=== PATIENT | male | born 1990 | race Caucasian/White ===

== ENCOUNTER 2016-11-13 06:37 | Emergency (ER) | payer OTHER ==
[~2016-11-13] VITALS: Ht 175.3 cm; Wt 75.8 kg
[~2016-11-13 06:37] MED LIST: ADVIL200 M1 PO; ALPRAZOLAM1 M2 PO; CLONIDINE HCL0.2 M1 PO; EXCEDRIN MIGRA1 EAC1 PO; IMITREX50 M1 PO; PROPRANOLOL HCL40 M1 PO; ZOFRAN ODT4 M1 SL
--- NOTE | 2016-11-13 07:08 | ED PSYCHIATRIC COMPLAINT ---
History of Present Illness General Chief Complaint: ETOH/Drug Related Complaint Stated Complaint: TRES HEROIN OD (4BAGS) Source: patient, EMS Exam Limitations: no limitations Vital Signs & Intake/Output Vital Signs & Intake/Output Vital Signs Date Time Temp Pulse Resp B/P Pulse O2 O2 Flow FiO2 Ox Delivery Rate 11/13 0653 97 Room Air 11/13 0641 100.2 110 18 148/93 98 Room Air Allergies Coded Allergies: mushroom (Intermediate, HIVES 03/06/16) Reconcile Medications Alprazolam 1 MG TABLET 1 TAB PO TID PRN ANXIETY (Reported) Aspirin/Acetaminophen/Caffeine (Excedrin Migraine Caplet) 250 MG-250 MG-65 MG TABLET 2-3 TAB PO DAILY PRN HEADACHES (Reported) Ibuprofen (Advil) 200 MG CAPSULE 8 TAB PO PRN PAIN (Reported) Triage Note: TRIAGE: PATIENT TO ER FROM HOME REPORTING SNORTED 4-6 BAGS HEROIN AT APPROX 4AM, FOUND UNRESPONSIVE AND AGONAL RESPIRATIONS BY FATHER JUST BIAZZI NITRATOR OPERATOR. BIBA, NARCAN ADMINISTERED BY PD ON ARRIVAL, PREHOSP IV EST #18 LEFT AC. PATIENT ARRIVES ALERT AND ORIENTED, DROWSY. WANDED AND CHANGED INTO SCRUBS. 1 BELONGINGS BAG LOCKED IN CLOSET, 1 VALUABLES BAG TO ER SAFE. PATIENT VSS, PLACED ON HEALTH AND SAFETY TECH, HR 110, SINUS TACH. Triage Nurses Notes Reviewed? yes Onset: Abrupt Duration: 4 AM Timing: single episode today Severity: severe Associated Symptoms: UNINTENTIONAL OVERDOSE HPI: 26 year old male TRES from home for chief complaint of snorting 5-6 bags appear when at 4 AM today. He was found unresponsive at home by his father given Narcan in the field with good response. Since arrival to the emergency department. He is been awake however slightly drowsy. Denies any suicidal or homicidal ideation. He states this is first relapse since rehabilitation one month ago at [facility]. Patient reports history of insomnia and states that he relapsed secondary to that. No anxiety or hallucinations or delusions. Denies any history of intravenous drug abuse. He states he took 1 tab of Lyrica as well. Patient reports history of emotional problems but states that he does not want to speak to a crisis counselor at this time. He states he just wants to follow up outpatient with [facility]. Past History Travel History Traveled to [place] past 21 day No Medical History Any Pertinent Medical History? see below for history Neurological: migraine EENT: NONE Cardiovascular: NONE Respiratory: NONE Gastrointestinal: STOMACH ULCERS Hepatic: NONE Renal: NONE Musculoskeletal: NONE Psychiatric: anxiety, depression, PANIC ATTACKS PTSD Endocrine: NONE Blood Disorders: NONE Cancer(s): NONE PARKING LOT MANAGER/Reproductive: NONE Surgical History Surgical History: non-contributory Psychosocial History Who do you live with Family What is your primary language Kiswahili Tobacco Use: Current Daily Use Daily Tobacco Use Amount/Type: => 5 Cigarettes daily Illicit Drug Use: heroin Family History Hx Contributory? No Review of Systems Review of Systems Constitutional: Denies: chills, fever. EENTM: Reports: no symptoms. Respiratory: Denies: cough, short of breath. Cardiovascular: Denies: chest pain. GI: Denies: abdominal pain. Genitourinary: Reports: no symptoms. Musculoskeletal: Reports: no symptoms. Skin: Reports: no symptoms. Neurological/Psychological: Reports: depressed, emotional problems. Denies: anxiety. Hematologic/Endocrine: Denies: bruising, bleeding. Immunologic/Allergic: Reports: no symptoms. All Other Systems: Reviewed and Negative Physical Exam Physical Exam General Appearance: well developed/nourished, awake, mild distress, DROWSY Head: atraumatic Eyes: Bilateral: PERRL, EOMI. Ears, Nose, Throat: normal pharynx, normal ENT inspection, hearing grossly normal Neck: normal inspection, supple Respiratory: normal breath sounds Cardiovascular: regular rate/rhythm Gastrointestinal: soft, non-tender Extremities: normal range of motion Neurological/Psychiatric: awake, SLIGHTLY DROWSY Appearance/Memory/Insight: denies illness, disheveled Behavoir/Eye Contact/Speech: cooperative, decreased rate of speech Thoughts/Hallucinations: no apparent hallucination Skin: intact, normal color, warm/dry SAD PERSONS Done? patient not suicidal Progress Differential Diagnosis: HEROIN OVERDOSE, POLYSUBSTANCE ABUSE Plan of Care: Current Medications Sig/Sophia Start time Last Medication Dose Stop Time Status Admin Sodium Chloride 1,000 ML BOLUS ONE 11/13 714 UNVr (Normal Saline 0.9%) 11/13 81311/13/2016 7:57:03 AM Patient ambulatory in the ED on the phone with his mother. No signs of respiratory distress. Patient states he does not want to crisis today. He he has a follow-up appointment with [facility]. (GRACE FISHMAN,JOSIANE) Departure Departure Time of Disposition: 933 Disposition: HOME OR SELF CARE Condition: Stable Clinical Impression Primary Impression: Heroin overdose Referrals: JOHN CHEATHAM MD (PCP/Family) Additional Instructions: Follow up with care and with a list of outpatient detox places. Departure Forms: Customer Survey General Discharge Information
[2016-11-13 09:11] VITALS: BP 126/73
== END 2016-11-13 09:35 ==
LOC: ERH 06:37
DX: T40.1X1A Poisoning by heroin, accidental (unintentional), initial encounter (principal)

== ENCOUNTER 2016-12-15 03:56 | Emergency (ER) | payer OTHER ==
[~2016-12-15] VITALS: Ht 177.8 cm; Wt 72.6 kg
--- NOTE | 2016-12-15 04:19 | ED AMS/SEIZURE/WEAK/DIZZY ---
History of Present Illness General Chief Complaint: ETOH/Drug Related Complaint Stated Complaint: BIBA, OVERDOSE Source: patient, EMS Exam Limitations: no limitations Vital Signs & Intake/Output Vital Signs & Intake/Output Vital Signs Date Time Temp Pulse Resp B/P B/P Pulse O2 O2 Flow FiO2 Mean Ox Delivery Rate 12/15 08 96.2 77 16 109/54 97 Room Air 12/15 0407 98 Room Air 12/15 0359 96.8 68 18 155/55 96 Allergies Coded Allergies: mushroom (Intermediate, HIVES 03/06/16) Reconcile Medications Alprazolam 1 MG TABLET 1 TAB PO TID PRN ANXIETY (Reported) Aspirin/Acetaminophen/Caffeine (Excedrin Migraine Caplet) 250 MG-250 MG-65 MG TABLET 2-3 TAB PO DAILY PRN HEADACHES (Reported) Ibuprofen (Advil) 200 MG CAPSULE 8 TAB PO PRN PAIN (Reported) Triage Note: PT BIBA FROM HOME C/O INGESTION OF DRUGS /FOUND UNRESPONSIVE. PER MEDIC PT WAS FOUND BY PTS FATHER UNRESPONSIVE. ON ARRIVAL MEDIC STATED THAT PT AWOKE AND STATED HE TOOK APPROXIMATELY 20MG XANEX AND 1 10MG TAB OF FLEXERIL PO AROUND 0030. ON ARRIVAL PT ALERT AND ORIENTED X3. SLUGGISH REACTIONS. PER HOSPITAL IV ESTABLISHED LAC #18. AWAITING PROVIDER EVAL, PTS VSS, PT WANDED AND CHANGED BY SECURITY INTO BLUE SCRUBS. PT HAS 0 VALUABLES AND (1) BELONGINGS BAG LOCKED IN BH CLOSET. Triage Nurses Notes Reviewed? yes Onset: Gradual Duration: minute(s):, better Timing: single episode today Injury Environment: home Severity: moderate Modifying Factors: Improves With: other (awoke with vigorous stimuli). Associated Symptoms: somnolence HPI: 26-year-old gentleman presents with increased somnolence. Per the medics, he was watching television. His father noted that he seemed more somnolent than usual. He attempted to arouse him. His father required vigorous slopping of his face to arouse him. He did arouse. He states that he took some Xanax and Flexeril. He denies doing other drugs. The medics note that approximately one month ago he required Narcan in the field to revive him from a heroin overdose. Not suicidal. He did not engage in an intentional overdose. He is otherwise well and has no other concerns. (JANIE GUNN MD) Past History Travel History Traveled to [place] past 21 day No Medical History Any Pertinent Medical History? see below for history Neurological: migraine EENT: NONE Cardiovascular: NONE Respiratory: NONE Gastrointestinal: STOMACH ULCERS Hepatic: NONE Renal: NONE Musculoskeletal: NONE Psychiatric: anxiety, depression, PANIC ATTACKS PTSD Endocrine: NONE Blood Disorders: NONE Cancer(s): NONE TREE SURGEON HELPER/Reproductive: NONE Surgical History Surgical History: non-contributory Psychosocial History Who do you live with Family What is your primary language Sao Tomean Tobacco Use: Current Daily Use Daily Tobacco Use Amount/Type: => 5 Cigarettes daily Family History Hx Contributory? No (JANIE GUNN MD) Review of Systems Review of Systems Constitutional: Reports: no symptoms. EENTM: Reports: no symptoms. Respiratory: Reports: no symptoms. Cardiovascular: Reports: no symptoms. GI: Reports: no symptoms. Genitourinary: Reports: no symptoms. Musculoskeletal: Reports: no symptoms. Skin: Reports: no symptoms. Neurological/Psychological: Reports: no symptoms. Hematologic/Endocrine: Reports: no symptoms. Immunologic/Allergic: Reports: no symptoms. All Other Systems: Reviewed and Negative (JANIE GUNN MD) Physical Exam Physical Exam General Appearance: well developed/nourished, no apparent distress, awake, comfortable Head: atraumatic, normal appearance Eyes: Bilateral: normal appearance, PERRL, EOMI. Ears, Nose, Throat: normal pharynx, normal ENT inspection, hearing grossly normal Neck: normal inspection, supple, full range of motion Respiratory: normal breath sounds, chest non-tender, no respiratory distress, quiet respiration, lungs clear Cardiovascular: regular rate/rhythm Gastrointestinal: normal bowel sounds, soft, non-tender Back: normal inspection Extremities: normal range of motion, evidence of injury Neurologic/Psych: no motor/sensory deficits, awake, oriented x 3 Skin: intact, normal color, warm/dry Core Measures ACS in differential dx? No CVA/TIA Diagnosis: No Severe Sepsis Present: No Septic Shock Present: No (JANIE GUNN MD) Progress Differential Diagnosis: alcohol intoxication, dehydration, drug intoxication Plan of Care: Orders Procedure Date/time Status Regular Diet 12/15 B Active URINE DRUG SCREEN FOR ER ONLY 12/15 417 Complete ETHANOL 12/15 417 Complete COMPREHENSIVE METABOLIC PANEL 12/15 417 Complete CBC WITHOUT DIFFERENTIAL 12/15 417 Complete EKG 12/15 417 Active Laboratory Tests 12/15/16 1005: Urine Opiates Screen 101.00, Methadone Screen < 40, Barbiturate Screen < 60, Ur Phencyclidine Scrn < 6.00, Amphetamines Screen < 100, U Benzodiazepines Scrn 365 H, Urine Cocaine Screen < 50, Urine Cannabis Screen 63.10 H 12/15/16 0426: Anion Gap 13, Estimated GFR > 60, BUN/Creatinine Ratio 21.1, Glucose 92, Calcium 9.1, Total Bilirubin 0.6, AST 20, ALT 48, Alkaline Phosphatase 78, Total Protein 7.2, Albumin 4.3, Globulin 2.9, Albumin/Globulin Ratio 1.5, CBC w Diff NO MAN DIFF REQ, RBC 4.54 L, MCV 91.2, MCH 30.7, RDW 13.8, MPV 7.0 L, Gran % 47.4, Lymphocytes % 43.9, Monocytes % 5.7, Eosinophils % 2.3, Basophils % 0.7, Absolute Granulocytes 3.5, Absolute Lymphocytes 3.3, Absolute Monocytes 0.4, Absolute Eosinophils 0.2, Absolute Basophils 0.1, PUBS MCHC 33.7, Serum Alcohol < 10.0 Initial ED EKG: normal axis, normal intervals, normal p-waves, normal QRS complex, normal sinus rhythm Hand-Off Endorsed To: CONRAD RAMIRES MD Endorsed Time: 0700 Pending: labs, other (clinical sobriety) (LUIS A FISHMAN,JANIE Mccauley) Comments: Admits to taking Xanax and Flexeril. Father reports he took Xanax 6mg. (CONRAD RAMIRES MD) Departure Departure Condition: Stable Referrals: JOHN CHEATHAM MD (PCP/Family) Departure Forms: Customer Survey General Discharge Information Comments 12/15/16, 6:41am... pt quite somnolent... will await re-evaluation this morning. (LUIS A FISHMAN,JANIE Mccauley) Departure Time of Disposition: 1219 Disposition: HOME OR SELF CARE Clinical Impression Primary Impression: Mental status change Qualifiers: Altered mental status type: somnolence Qualified Code: R40.0 - Somnolence Secondary Impressions: Medication reaction (CONRAD RAMIRES MD)
[2016-12-15 04:31] LABS: ABSOLUTE BASOPHIL COUNT 0.1 /CUMM (0.0-0.2); ABSOLUTE EOSINOPHIL COUNT 0.2 /CUMM (0.0-0.7); ABSOLUTE GRANULOCYTE CT 3.5 /CUMM (1.4-6.5); ABSOLUTE LYMPH COUNT 3.3 /CUMM (1.2-3.4); ABSOLUTE MONOCYTE COUNT 0.4 /CUMM (0.10-0.60); BASOPHIL % 0.7 % (0.0-2.0); EOSINOPHIL % 2.3 % (0-5); GRANULOCYTE % 47.4 % (42.2-75.2); HEMATOCRIT 41.5 % (42-52); MEAN CORPUSCULAR HGB 30.7 PG (27.0-31.0); MEAN CORPUSCULAR HGB CONC 33.7 G/DL (33.0-37.0); MEAN CORPUSCULAR VOLUME 91.2 FL (80.0-94.0); PLATELET COUNT 218 /CUMM (130-400); RBC DISTRIBUTION WIDTH 13.8 % (11.5-14.5); RED BLOOD CELL CT 4.54 /CUMM (4.70-6.10); WHITE BLOOD CELL COUNT 7.4 /CUMM (4.8-10.8)
[2016-12-15 12:35] VITALS: BP 123/81
== END 2016-12-15 12:37 ==
LOC: ERH 03:56
PROVIDERS: Pediatrics
DX: R41.82 Altered mental status, unspecified (principal); T42.71XA Poisoning by unspecified antiepileptic and sedative-hypnotic drugs, accidental (unintentional), initial encounter
CPT/HCPCS: 80307; 93005; 93010; G0480